=== PATIENT | female | born 1950 | race Caucasian/White ===

== ENCOUNTER 2018-07-06 11:19 | Inpatient (IN) | payer MEDICARE, BC ==
[2018-07-06 11:47] LABS: ADD MAN DIFF? NO
[2018-07-06] MEDS: ONDANSETRON 4 MG INJ IV (11:50)
[2018-07-06] MEDS: SOD CHLORIDE 0.9% 1,000 ML IV ×2 (11:51→13:50)
[2018-07-06 11:54] LABS: WHITE BLOOD COUNT 7.2 10^3/ul (4.8-10.8)
[2018-07-06 11:54] LABS: BASOPHILS % 0.4 % (0.0-2.0); EOSINOPHILS # 0.1 10^3/ul (0.0-0.5); EOSINOPHILS % 0.8 % (0.0-7.0); HEMOGLOBIN 12.2 g/dl (12.0-16.0); LYMPHOCYTES # 1.7 10^3/ul (0.8-2.9); LYMPHOCYTES % 23.3 % (15.0-51.0); MEAN CORPUSCULAR HEMOGLOBIN 28.1 pg (29.0-33.0); MEAN CORPUSCULAR HGB CONC 32.1 g/dl (32.0-37.0); MEAN CORPUSCULAR VOLUME 87.6 fl (82.0-101.0); MONOCYTE # 0.5 10^3/ul (0.3-0.9); MONOCYTES % 7.1 % (0.0-11.0); NEUTROPHIL # 4.9 10^3/ul (1.6-7.5); PLATELET COUNT 384 10^3/UL (140-415); RED BLOOD COUNT 4.34 10^6/ul (4.20-5.40); RED CELL DISTRIBUTION WIDTH 13.8 % (11.5-14.5)
[2018-07-06 12:08] LABS: ALANINE AMINOTRANSFERASE 19 IU/L (13-69); ALBUMIN 3.7 g/dl (3.3-4.9); ALBUMIN/GLOBULIN RATIO 1.32; ALKALINE PHOSPHATASE 90 IU/L (42-121); ANION GAP 7 (5-13); ASPARTATE AMINO TRANSFERASE 22 IU/L (15-46); BILIRUBIN,INDIRECT 0.4 mg/dl (0-1.1); BILIRUBIN,TOTAL 0.4 mg/dl (0.2-1.3); BLOOD UREA NITROGEN 10 mg/dl (7-20); CALCIUM 8.4 mg/dl (8.4-10.2); CARBON DIOXIDE 25 mmol/L (21-31); CHLORIDE 112 mmol/L (97-110); CREATININE 0.51 mg/dl (0.44-1.00); Estimated GFR > 60 mL/min (>60); GLUCOSE 83 mg/dl (70-220); LIPASE 249 U/L (23-300); POTASSIUM 3.6 mmol/L (3.5-5.1); SODIUM 144 mmol/L (135-144); TOTAL PROTEIN 6.5 g/dl (6.1-8.1)
[2018-07-06 12:22] LABS: FREE T4 (FREE THYROXINE) 0.97 ng/dl (0.78-2.44)
[2018-07-06 12:40] LABS: TROPONIN-I < 0.012 ng/ml (0.000-0.120)
[2018-07-06 12:45] LABS: FREE T3 3.48 pg/ml (2.77-5.27)
[2018-07-06] MEDS ORDERED: NACL 0.9% 3 ML SYG IV (13:30)
[2018-07-06] MEDS ORDERED: ACETAMINOPHEN 325 MG TAB PO (13:30)
[2018-07-06] MEDS ORDERED: ONDANSETRON 4 MG INJ IV (13:30)
[2018-07-06] MEDS ORDERED: DOCUSATE SODIUM 100 MG CAP PO (13:30)
[2018-07-06] MEDS ORDERED: MAGNESIUM HYDROXIDE 30ML CUP PO (13:30)
[2018-07-06] MEDS: POTASSIUM CHLORIDE (SR) 20 MEQ TAB PO (13:49)
[2018-07-06 13:50] LABS: MAGNESIUM 2.1 mg/dl (1.7-2.5)
[2018-07-06] MEDS: SOD CHLORIDE 0.9% 100 ML (15:06)
[2018-07-06] MEDS: IOHEXOL 300MG/ML 150 ML BTL (15:06)
[2018-07-07] MEDS: SOD CHLORIDE 0.9% 1,000 ML IV ×2 (03:00→15:53)
[2018-07-07 05:40] LABS: ADD MAN DIFF? NO
[2018-07-07 05:49] LABS: BASOPHILS % 0.4 % (0.0-2.0); EOSINOPHILS # 0.2 10^3/ul (0.0-0.5); EOSINOPHILS % 2.2 % (0.0-7.0); HEMATOCRIT 37.6 % (37.0-47.0); HEMOGLOBIN 11.9 g/dl (12.0-16.0); LYMPHOCYTES % 26.9 % (15.0-51.0); MEAN CORPUSCULAR HEMOGLOBIN 27.9 pg (29.0-33.0); MEAN CORPUSCULAR HGB CONC 31.6 g/dl (32.0-37.0); MEAN CORPUSCULAR VOLUME 88.3 fl (82.0-101.0); MEAN PLATELET VOLUME 11.2 fl (7.4-10.4); MONOCYTE # 0.6 10^3/ul (0.3-0.9); MONOCYTES % 8.3 % (0.0-11.0); NEUTROPHIL # 4.6 10^3/ul (1.6-7.5); NEUTROPHILS % 61.9 % (39.0-77.0); PLATELET COUNT 375 10^3/UL (140-415); RED BLOOD COUNT 4.26 10^6/ul (4.20-5.40); RED CELL DISTRIBUTION WIDTH 13.9 % (11.5-14.5)
[2018-07-07 05:49] LABS: WHITE BLOOD COUNT 7.4 10^3/ul (4.8-10.8)
[2018-07-07 06:21] LABS: ADD UMIC NO; UR ASCORBIC ACID NEGATIVE (NEGATIVE); UR BILIRUBIN (Dip) NEGATIVE (NEGATIVE); UR BLOOD (Dip) NEGATIVE (NEGATIVE); UR CLARITY CLEAR (CLEAR); UR COLOR YELLOW (YELLOW); UR GLUCOSE (Dip) NEGATIVE (NEGATIVE); UR KETONES (Dip) NEGATIVE (NEGATIVE); UR LEUKOCYTE ESTERASE (Dip) NEGATIVE Leu/ul (NEGATIVE); UR NITRITE (Dip) NEGATIVE (NEGATIVE); UR SPECIFIC GRAVITY (Dip) 1.032 (1.003-1.030); UR TOTAL PROTEIN (Dip) NEGATIVE (NEGATIVE); UR UROBILINOGEN (Dip) NEGATIVE (NEGATIVE)
[2018-07-07 06:26] LABS: ANION GAP 8 (5-13); BLOOD UREA NITROGEN 18 mg/dl (7-20); CALCIUM 9.2 mg/dl (8.4-10.2); CARBON DIOXIDE 29 mmol/L (21-31); CHLORIDE 105 mmol/L (97-110); CREATININE 0.68 mg/dl (0.44-1.00); Estimated GFR > 60 mL/min (>60); GLUCOSE 89 mg/dl (70-220); MAGNESIUM 2.2 mg/dl (1.7-2.5); POTASSIUM 4.5 mmol/L (3.5-5.1); SODIUM 142 mmol/L (135-144)
[2018-07-07] MEDS: ASPIRIN (EC) 81 MG TAB PO (09:00)
[2018-07-07] MEDS ORDERED: NON-FORMULARY/PATIENT OWN MED (Omeprazole* 40 MG) PO (09:00)
[2018-07-07] MEDS: LISINOPRIL 5 MG TAB PO ×2 (09:00)
[2018-07-07] MEDS: FAMOTIDINE 20 MG INJ IV ×2 (09:35→20:37)
[2018-07-07] MEDS: PROPOFOL 20 ML (16:30)
[2018-07-07] MEDS: LIDOCAINE 2% (SDV) 5 ML INJ (16:30)
[2018-07-07] MEDS ORDERED: PROPOFOL 200 MG INJ (16:30)
[2018-07-07] MEDS ORDERED: ONDANSETRON 4 MG INJ IV (17:00)
[2018-07-07] MEDS: AL HYDROX/MG HYDROX/SIMETH 30 ML CUP PO (20:35)
[2018-07-07] MEDS: MECLIZINE 12.5 MG TAB PO (20:38)
[2018-07-08] MEDS: SOD CHLORIDE 0.9% 1,000 ML IV (08:00)
[2018-07-08] MEDS: ASPIRIN (EC) 81 MG TAB PO (08:25)
[2018-07-08] MEDS: FAMOTIDINE 20 MG TAB PO (08:25)
[2018-07-08] MEDS: LISINOPRIL 5 MG TAB PO ×2 (08:25)
[2018-07-08] MEDS: SUCRALFATE 1 GM TAB PO ×4 (12:08→20:24)
[2018-07-08] MEDS: PANTOPRAZOLE (EC) 40 MG TAB PO ×2 (19:01)
[2018-07-09] MEDS: PANTOPRAZOLE (EC) 40 MG TAB PO ×2 (06:49)
[2018-07-09] MEDS: SUCRALFATE 1 GM TAB PO ×2 (09:31→12:27)
[2018-07-09] MEDS: LISINOPRIL 5 MG TAB PO ×2 (09:31)
[2018-07-09] MEDS: ASPIRIN (EC) 81 MG TAB PO (09:31)
== END 2018-07-09 14:30 | disposition home or self-care (01) | DRG 392 ==
LOC: E/R 11:19 → 6WM 12:38
PROC: 0DB68ZX Excision of Stomach, Via Natural or Artificial Opening Endoscopic, Diagnostic (ICD-10-PCS; principal; 2018-07-07 16:12)
PROC: 0DB98ZX Excision of Duodenum, Via Natural or Artificial Opening Endoscopic, Diagnostic (ICD-10-PCS; 2018-07-07 16:12)
DX: K29.70 Gastritis, unspecified, without bleeding (principal); I10 Essential (primary) hypertension; R63.4 Abnormal weight loss; Z68.21 Body mass index [BMI] 21.0-21.9, adult; R42 Dizziness and giddiness; K29.80 Duodenitis without bleeding
CPT/HCPCS: 36415; 70450; 70552; 71045; 74177; 80048; 80053; 81003; 83690; 83735; 84439; 84443; 84481; 84484; 85025; 87338; 88305; 88312; 93005; 93306; 96374; 97161; 99285-25; G0378

== ENCOUNTER 2019-01-10 08:31 | Day surgery (SDC) | payer MEDICARE, BC ==
[2019-01-10] MEDS ORDERED: PROPOFOL 40 ML (10:48)
== END 2019-01-10 14:11 | disposition home or self-care (01) ==
LOC: GIL 08:31
DX: D50.9 Iron deficiency anemia, unspecified (principal); K64.8 Other hemorrhoids
CPT/HCPCS: 45380; 88305